=== PATIENT | female | born 1955 | race Caucasian/White ===

== ENCOUNTER → 2016-08-06 | Outpatient (CLI) | payer BC ==
--- NOTE | 2016-08-08 15:44 | BD ---
EXAMINATION TYPE: MG DEXA axial skeleton. DATE OF EXAM: 08/06/2016 3:41 PM COMPARISON: NONE CLINICAL HISTORY: Height: 5 ft 6 in Weight: 240 FRAX RISK QUESTIONS: Alcohol (3 or more units per day): NO Family History (Parent hip fracture): NO Glucocorticoids (More than 3mos): NO (Ex: prednisone, prednisolone, methylprednisolone, dexamethasone, and hydrocortisone). History of Fracture in Adulthood: NO Secondary Osteoporosis: 1. Type 1 Diabetes: NO 2. Hyperthyroidism: NO 3. Menopause before 45: NO 4. Malnutrition: NO 5. Chronic liver disease: NO Rheumatoid Arthritis: YES Current Tobacco Use: NO RISK FACTORS HISTORY OF: Active: YES Postmenopausal woman: PART HYST AGE 45 MEDICATIONS: Additional Medications: DIOVAN, METHOTREXATE, EMBREL,FOLIC ACID,ASPIRIN Additional History: EXAM MEASUREMENTS: Bone mineral densitometry was performed using the Fut[employer] System. Bone mineral density as measured about the Lumbar spine is: ----- L1-L4(G/cm2): 1.439 T Score Values are as follows: ----- L2: 1.7 ----- L3: 2.5 ----- L4: 3.2 ----- L1-L4: 2.2 Bone mineral density has: Decreased -2.2% since study of: 2009 Bone mineral density about the R hip (g/cm2): 1.064 Bone mineral density about the L hip (g/cm2): 1.085 T Score values are as follows: -----R Neck: 0.2 -----L Neck: 0.3 -----R Total: 0.2 -----L Total: 0.9 Bone mineral density has: Decreased -8.2% since study of: 2009 IMPRESSION: Normal (Values between +1 and -1 indicate normal bone mass). Consider repeating this study in 5 year s or sooner if there is some new clinical indication. Bone density has diminished 8.4% within the bilateral hips from 11/13/2009 NOTE: T-SCORE=SD OF THE YOUNG ADULT MEAN.
== END | disposition home or self-care (01) ==
LOC: RADBDWWP 15:40
PROVIDERS: ATTEND Internal Medicine Rheumatology
DX: M81.0 Age-related osteoporosis without current pathological fracture (principal)
CPT/HCPCS: 77080

== ENCOUNTER → 2017-04-22 | Outpatient (CLI) | payer BC | END | disposition home or self-care (01) | LOC: LABPAT 14:57 | PROVIDERS: ATTEND Orthopaedic Surgery | DX: Z01.812 Encounter for preprocedural laboratory examination (principal) | CPT/HCPCS: 87070 ==

== ENCOUNTER → 2017-04-24 | Outpatient (CLI) | payer BC ==
[2017-04-24 14:09] LABS: INR 1.1 (<1.2); Partial Thromboplastin Time 23.4 sec (22.0-30.0); Prothrombin Time 10.7 sec (9.0-12.0)
[2017-04-24 14:13] LABS: Appearance,Urine Clear (Clear); Bilirubin,Urine Negative (Negative); Blood,Urine Negative (Negative); Color,Urine Light Yellow; Glucose,Urine (UA) Negative (Negative); Ketones,Urine Negative (Negative); Leukocyte Esterase,Urine Negative (Negative); Nitrite,Urine Negative (Negative); PH, Urine 5.5 (5.0-8.0); Protein,Urine Negative (Negative); Specific Gravity,Urine 1.005 (1.001-1.035); Urobilinogen,Urine <2.0 mg/dL (<2.0)
== END | disposition home or self-care (01) ==
LOC: LABPAT 12:48
PROVIDERS: ATTEND Orthopaedic Surgery
DX: Z01.812 Encounter for preprocedural laboratory examination (principal)
CPT/HCPCS: 36415; 81003; 85610; 85730

== ENCOUNTER → 2017-05-19 | Outpatient (CLI) | payer BC ==
[2017-05-19 12:45] LABS: HCT 39.1 % (34.0-46.0); HGB 13.1 gm/dL (11.4-16.0); MCH 30.4 pg (25.0-35.0); MCHC 33.5 g/dL (31.0-37.0); MCV 90.7 fL (80.0-100.0); Mean Platelet Volume 7.4; Platelet Count 279 k/uL (150-450); RDW 13.5 % (11.5-15.5); WBC 7.8 k/uL (3.8-10.6)
[2017-05-19 13:08] LABS: Anion Gap 11 mmol/L; Blood Urea Nitrogen 17 mg/dL (7-17); Carbon Dioxide 31 mmol/L (22-30); Chloride 101 mmol/L (98-107); Potassium 4.2 mmol/L (3.5-5.1); Sodium 143 mmol/L (137-145)
== END | disposition home or self-care (01) ==
LOC: LABPAT 12:05
PROVIDERS: ATTEND Internal Medicine Interventional Cardiology
DX: Z01.812 Encounter for preprocedural laboratory examination (principal); R07.9 Chest pain, unspecified
CPT/HCPCS: 36415; 80051; 82565; 84520; 85027

== ENCOUNTER → 2017-05-26 | Day surgery (SDC) | payer BC ==
[2017-05-22 09:55] VITALS: BMI 38.0
[~2017-05-26] MED LIST: ALPRAZolam 0.25 MG TAB PO PRN; ALPRAZolam 0.5 MG TAB PO PRN; ASPIRIN 325 MG TAB PO STA; ASPIRIN 81 MG PO SCH; ATORVASTATIN 80 MG TAB PO STA; Etanercept [Enbrel] 50 MG SQ SCH; FOLIC ACID 1 MG TAB PO SCH; HEPARIN SODIUM 1,000 UN/ML (10ML VL) ONE; HYDROCHLOROTHIAZIDE PO SCH; IOHEXOL 350 MG/ML 125ML BOTTLE INJ ONE; LIDOCAINE 2% INJ 20 MG/ML (20 ML MDV) ONE; LIDOCAINE 2% INJ 20 MG/ML SQ ONE; METHOTREXATE 25 MG SQ SCH; MIDAZOLAM 2 MG/2 ML VIAL IVP ONE; MIDAZOLAM 2 MG/2 ML VIAL ONE; NITROGLYCERIN SL TABS 0.4 MG TAB SUBLINGUAL PRN; RX INFO: IV CONTRAST WAS GIVEN 1 EACH MISC MISCELLANE PRN; SODIUM CHLORIDE 0.9% 1,000 ML IV SCH; SODIUM CHLORIDE 0.9% 1,000 ML in EMPTY BAG 1 BAG IV ONE; VALSARTAN PO SCH; VERAPAMIL 2.5 MG/ML 2 ML AMP ONE; VERAPAMIL SYRINGE (5 MG/10 ML) INTRAARTER ONE; fentaNYL (PF) 50 MCG/ML 2 ML AMP IVP ONE; fentaNYL (PF) 50 MCG/ML 2 ML AMP ONE
[2017-05-26 07:17] VITALS: TEMP 98.9
[2017-05-26] MEDS: VERAPAMIL SYRINGE (5 MG/10 ML) INTRAARTER ONE ×2 (08:37→08:51)
[2017-05-26 09:05] VITALS: RESP 16
--- NOTE | 2017-05-26 09:30 | CC ---
CARDIAC CATHETERIZATION REPORT Mrs. De La Garza is a 61-year-old female with a known history of hypertension, family history of premature coronary disease who has been complaining of dyspnea on exertion. She is scheduled to undergo total knee arthroplasty and had stress test revealed inferolateral reversible defect. In view of that, recommendation made regarding cardiac catheterization. The procedures, risks and complication were discussed with the patient who is in full understanding and agreement. PROCEDURE: Patient was brought to the Branch Billing Payroll Clerk in a fasting semi-sedated state after receiving fentanyl and Benadryl and achieving moderate conscious sedated state. She was draped and prepped in conventional fashion using Xylocaine anesthesia and Seldinger technique. A 6-Polish sheath was introduced in the right radial artery. Selective right and left angiography performed using 5-Polish 3.5 bend right and left Wale catheter. Multiple views of the coronary artery including hemiaxial views were obtained. Following that, a 5-Polish tight pigtail catheter introduced in the left ventricle and a 30 degree BURTON view of the left ventricle was obtained. Following that, the catheter and sheaths were removed. Hemostasis was obtained from deployment of a TR band. There was no immediate complication. Patient is returned to her room in stable condition. Of note, the patient received 5000 units of intravenous heparin as well as intra- arterial verapamil. FINDINGS: 1. LEFT MAIN: This is a short-sized vessel bifurcating into left circumflex, left anterior descending artery, left main coronary artery is without any evidence of high-grade stenosis. 2. LEFT ANTERIOR ARTERY: This is a large-sized vessel, reaching toward the apex with a wraparound apex segment giving rise to one large diagonal branch. The left anterior descending artery as well as its branches have no evidence of obstructive coronary artery disease. 3. LEFT CIRCUMFLEX: This is a nondominant vessel, giving rise to 2 obtuse marginal branches. The first one is large in caliber. The left circumflex as well as branches have no evidence of obstructive coronary disease. 4. RIGHT CORONARY ARTERY: This is a large dominant vessel, bifurcating into PDA and posterolateral segment branches. The right coronary artery as well as branches have no evidence of obstructive coronary disease. 5. LEFT VENTRICULOGRAM: Left ventriculogram was performed in 30 degree BURTON view and reveals normal left ventricular size and systolic function. Ejection fraction is 60%. 6. HEMODYNAMICS: There was no gradient across the aortic valve. The left ventricular end diastolic pressure was 8 mmHg. CONCLUSION: 1. Normal coronary arteries. 2. Normal left ventricular size and systolic function. RECOMMENDATION: In view of finding anatomy, I would recommend continue medical therapy with aggressive risk factor modifications being initiated. Those findings and recommendation were discussed with the patient and family, who are in understanding and agreement. DURATION OF THE PROCEDURE: 23 minutes. DESIRE / HUIN: [id number] /
--- NOTE | 2017-05-26 09:36 | LTR ---
DATE OF SERVICE: 05/26/2017 RE: Frederic Selena Dear Dr. Branham; I had the pleasure to perform cardiac catheterization on Mrs. De La Garza at [facility] on May 26, 2017 and full copy of the procedure note will be forwarded to you. In brief, she was found to have no evidence of obstructive coronary artery disease and based on those findings, I see no contraindication to her upcoming surgical intervention. Thank you again for allowing me to participate in this patient's care. Please feel free to call for any questions issues. Sincerely yours; MD MOLLY GriffithsL / HUIN: [id number] /
[2017-05-26 10:44] VITALS: BP 123/68; PULSE 62
== END | disposition home or self-care (01) ==
LOC: CATHCVL 06:46
PROVIDERS: ATTEND Internal Medicine Interventional Cardiology
DX: R94.39 Abnormal result of other cardiovascular function study (principal); I10 Essential (primary) hypertension; Z82.49 Family history of ischemic heart disease and other diseases of the circulatory system; Z79.82 Long term (current) use of aspirin; Z79.899 Other long term (current) drug therapy; Z88.5 Allergy status to narcotic agent
CPT/HCPCS: 93458; C1894; C1769; J2001; J2250; J3010; J1644; Q9967

== ENCOUNTER → 2017-07-10 | Outpatient (CLI) | payer BC ==
[2017-07-10 14:26] LABS: HGB 13.4 gm/dL (11.4-16.0); MCH 30.6 pg (25.0-35.0); MCHC 34.5 g/dL (31.0-37.0); MCV 88.8 fL (80.0-100.0); Mean Platelet Volume 7.4; Platelet Count 253 k/uL (150-450); RBC 4.39 m/uL (3.80-5.40); WBC 7.1 k/uL (3.8-10.6)
[2017-07-10 14:33] LABS: INR 1.1 (<1.2); Partial Thromboplastin Time 22.8 sec (22.0-30.0); Prothrombin Time 10.4 sec (9.0-12.0)
[2017-07-10 14:40] LABS: Albumin 4.3 g/dL (3.5-5.0); Calcium 9.6 mg/dL (8.4-10.2); Potassium 4.1 mmol/L (3.5-5.1); Total Bilirubin 0.6 mg/dL (0.2-1.3); Total Protein 7.6 g/dL (6.3-8.2)
[2017-07-10 14:53] LABS: Appearance,Urine Clear (Clear); Bacteria,Urine Many /hpf; Bilirubin,Urine Negative (Negative); Blood,Urine Negative (Negative); Color,Urine Yellow; Glucose,Urine (UA) Negative (Negative); Ketones,Urine Negative (Negative); Leukocyte Esterase,Urine Small (Negative); Mucus,Urine Rare /hpf; Nitrite,Urine Negative (Negative); PH, Urine 5.5 (5.0-8.0); Protein,Urine Negative (Negative); RBC,Urine 1 /hpf (0-5); Specific Gravity,Urine 1.012 (1.001-1.035); Squamous Epithelial Cell,Urine 2 /hpf (0-4); Urobilinogen,Urine <2.0 mg/dL (<2.0); WBC,Urine 8 /hpf (0-5)
== END | disposition home or self-care (01) ==
LOC: LABWHC1 13:50
PROVIDERS: ATTEND Orthopaedic Surgery
DX: Z01.812 Encounter for preprocedural laboratory examination (principal)
CPT/HCPCS: 36415; 80053; 81001; 85027; 85610; 85730; 87070

== ENCOUNTER 2017-07-28 09:00 | Inpatient (IN) | payer BC ==
[~2017-07-28 09:00] MED LIST changes: +ACETAMINOPHEN TAB 500 MG TAB PO ONE; -ALPRAZolam 0.25 MG TAB PO PRN; -ALPRAZolam 0.5 MG TAB PO PRN; -ASPIRIN 325 MG TAB PO STA; -ASPIRIN 81 MG PO SCH; -ATORVASTATIN 80 MG TAB PO STA; -Etanercept [Enbrel] 50 MG SQ SCH; -FOLIC ACID 1 MG TAB PO SCH; -HEPARIN SODIUM 1,000 UN/ML (10ML VL) ONE; -HYDROCHLOROTHIAZIDE PO SCH; -IOHEXOL 350 MG/ML 125ML BOTTLE INJ ONE; -LIDOCAINE 2% INJ 20 MG/ML (20 ML MDV) ONE; -LIDOCAINE 2% INJ 20 MG/ML SQ ONE; -METHOTREXATE 25 MG SQ SCH; +MIDAZOLAM 2 MG/2 ML VIAL IV PRN; -MIDAZOLAM 2 MG/2 ML VIAL IVP ONE; -MIDAZOLAM 2 MG/2 ML VIAL ONE; -NITROGLYCERIN SL TABS 0.4 MG TAB SUBLINGUAL PRN; +ONDANSETRON ODT 4 MG TAB PO ONE; +ROPIVACAINE 246.25 MG, EPINEPHrine 0.5 MG, KETOROLAC 30 MG, cloNIDine HCL/PF 80 MCG, WA... MISCELLANE ONE; -RX INFO: IV CONTRAST WAS GIVEN 1 EACH MISC MISCELLANE PRN; +SCOPOLAMINE 1.5MG/72HR PATCH TRANSDERM ONE; -SODIUM CHLORIDE 0.9% 1,000 ML IV SCH; -SODIUM CHLORIDE 0.9% 1,000 ML in EMPTY BAG 1 BAG IV ONE; +TRANEXAMIC ACID 1,000 MG in SODIUM CHLORIDE 0.9% 50 ML IVPB ONE; -VALSARTAN PO SCH; -VERAPAMIL 2.5 MG/ML 2 ML AMP ONE; -VERAPAMIL SYRINGE (5 MG/10 ML) INTRAARTER ONE; +ceFAZolin IN SWFI 2 GM/20 ML SYRINGE IVP ONE; +fentaNYL (PF) 50 MCG/ML 2 ML AMP IV PRN; -fentaNYL (PF) 50 MCG/ML 2 ML AMP IVP ONE; -fentaNYL (PF) 50 MCG/ML 2 ML AMP ONE
[2017-07-28] MEDS: MELOXICAM 7.5 MG TAB PO ONE ×2 (10:50→15:11)
[2017-07-28] MEDS: DEXAMETHASONE SOD PHOSPHATE 10 MG/ML 1 ML VIAL IV ONE ×2 (10:59→15:12)
[2017-07-28] MEDS ORDERED: ONDANSETRON 4 MG/2 ML VIAL IVP ONE (10:59)
[2017-07-28] MEDS: LACTATED RINGERS 1,000 ML IV SCH ×2 (10:59→11:44)
[2017-07-28] MEDS ORDERED: DIAZEPAM 5 MG TAB PO PRN ×2 (11:08)
[2017-07-28] MEDS ORDERED: MORPHINE SULFATE 4 MG/ML SYRINGE IVP PRN ×3 (11:08)
[2017-07-28] MEDS ORDERED: NA PHOS,M-B/NA PHOS,DI-BA 133 ML ENEMA RECTAL PRN (11:08)
[2017-07-28] MEDS ORDERED: HYDROcodone/APAP 5-325MG 1 EACH TAB PO PRN (11:08)
[2017-07-28] MEDS ORDERED: NALOXONE 0.4 MG/ML 1 ML VIAL IV PRN (11:08)
[2017-07-28] MEDS ORDERED: BISACODYL 10 MG SUPP RECTAL PRN (11:08)
[2017-07-28] MEDS ORDERED: ONDANSETRON 4 MG/2 ML VIAL IVP PRN (11:08)
[2017-07-28] MEDS ORDERED: hydrOXYzine PAMOATE 25 MG CAP PO PRN (11:08)
[2017-07-28] MEDS ORDERED: MAGNESIUM HYDROXIDE 2,400 MG/10 ML CUP PO PRN (11:08)
[2017-07-28] MEDS ORDERED: diphenhydrAMINE 50 MG/ML 1 ML VIAL ONE (11:19)
[2017-07-28] MEDS ORDERED: fentaNYL (PF) 50 MCG/ML 2 ML AMP ONE (11:19)
[2017-07-28] MEDS ORDERED: MIDAZOLAM 2 MG/2 ML VIAL ONE (11:19)
[2017-07-28] MEDS ORDERED: PROPOFOL 10 MG/ML 20 ML VIAL IV ONE (11:19)
[2017-07-28] MEDS ORDERED: MIDAZOLAM 2 MG/2 ML VIAL IVP ONE (11:20)
[2017-07-28] MEDS ORDERED: ceFAZolin 3,000 MG in SODIUM CHLORIDE 0.9% IRRIGATIO 3,000 ML IRRIGATION ONE (12:13)
--- NOTE | 2017-07-28 13:04 | P.OP ---
Date of Procedure: 07/28/17 Preoperative Diagnosis: Severe osteoarthritis right knee Postoperative Diagnosis: Severe osteoarthritis right knee Procedure(s) Performed: Right total knee arthroplasty Implants: Yadav and Nephew Oxinium femoral component size 6, right Yadav & Nephew Yvonne II right nonporous tibial baseplate size 6 Yadav & Nephew size 11 mm Legion XLPE dished articular insert, size 5-6 Yadav & Nephew Yvonne II resurfacing patellar component, 32 mm All components were cemented using Grace bone cement.. The articulation is Oxinium on polyethylene. Anesthesia: spinal Surgeon: Candido Tracey Concrete Conveyor Operator #1: Audra Workman Estimated Blood Loss (ml): 50 Pathology: other (Bone and cartilage) Condition: stable Disposition: PACU Indications for Procedure: After failure of conservative treatment we discussed the surgical and nonsurgical treatment options at length. Patient wishes to proceed with a total knee arthroplasty. Complications specific to this procedure were discussed at length, including but not limited to infection, bleeding, stiffness , and nerve injury. Patient is aware of all these complications and informed consent was obtained Operative Findings: The operative findings are consistent with severe osteoarthritis of the right knee Description of Procedure: Patient was seen in the preoperative area consent was reviewed and operative site was marked with a skin marker. An adductor canal pain catheter was placed by anesthesia in the preoperative area. Patient was then brought to the operating room and given preoperative antibiotics intravenously. A spinal anesthetic was administered by the anesthesia department. A tourniquet was placed on the upper thigh and the lower extremity was prepped and draped in usual sterile fashion. A gram of transexamic acid was given. A universal timeout was then performed which confirmed the patient's name, surgical site, ALLERGIES, and consent. The lower extremity was then exsanguinated and tourniquet was inflated to 250 mmHg. A standard and anterior midline approach to the knee was performed. The skin and subcutaneous tissue was dissected down to the patellar tendon. A medial parapatellar arthrotomy was then performed. The knee was then extended, the patellar was everted, and the knee was again flexed. Anterior horns of both menisci were excised, and a release was performed to the posterior medial aspect of the knee. On gross visual inspection, there was complete loss of articular cartilage in the medial and patellofemoral joint spaces. There was also significant cartilage damage in the lateral compartment. There were multiple periarticular osteophytes which were then removed with a Ronguer. The femoral canal was then opened with the appropriate drill, and the intramedullary femoral cutting guide was then placed and set for 4 of valgus. The distal femoral cutting block was then pinned in place, and the distal femur was then cut. The cutting block was then removed and the cut was checked for flatness. Next, the sizing guide was then placed and set for 3 external rotation based off of the epicondylar axis and Whitesides line. After the femur was sized, the appropriate 4-in-1 cutting block was then pinned in place. The anterior condyles were cut without notching. The posterior and chamfer cuts were performed while protecting the collateral ligaments. The cutting block was then removed, and the femoral canal was plugged with autologous bone. Attention was then directed to the tibia. The remaining ACL was removed with a Ronguer, and the tibia was then gently subluxed forward with a large bent knee retractor. Any remaining menisci was excised. The posterior lateral corner was cauterized in order to cauterize the lateral geniculate artery. The extra medullary tibial cutting guide was then placed, set for the appropriate rotation , slope, and depth of resection. The proximal tibia cutting guide was then pinned in place. Proximal tibia was then cut and sized. Next trials were then placed with the appropriate-sized insert. The knee was able to fully extend and flex to 130 and was stable throughout all range of motion. The knee was then extended, patella everted. Patella was then measured, and then using an osteotomy guide, the patella was cut at the appropriate level. The patella was then measured and drilled and the patella trial was then placed. The knee was then taken through range of motion with the patella trial and the patella tracked normally. The knee was then extended patella trial was then removed and the patella was everted. Knee was then flexed and lug holes were drilled through the femoral trial and the femoral trial was then removed. The tibial was then exposed, and the tibial broach guide was then pinned in place after it was set for the appropriate rotation to allow for the most coverage without overhang. The tibia was then reamed and broached. The cut surfaces of bone were then irrigated with pulsatile lavage. The posterior structures were injected with the ropivacaine solution. The knee was also irrigated with Irrisept solution. The components were then opened, the cement was mixed, and the components were then cemented in place. The cement was allowed to harden with the knee in full extension. While the cement was hardening, the remaining soft tissues were then injected with a ropivacaine solution, which consisted of 246.25 mg of ropivacaine, 0.5 mg of epinephrine, 30 mg of Toradol, 80 g of clonidine, and 48.45 mL of sterile water, for a total of 100 mL of fluid injected. After the cemented hardened. The tourniquet was released, and hemostasis was obtained. A second gram of transexamic acid was given. The knee was again irrigated. The knee was again taken through range of motion and found to be stable throughout all range of motion of 0-130 , and the patella tracked normally. The fascia was then closed with #2 strata fix suture. The subcutaneous tissue was closed with 3-0 Vicryl and 3-0 strata fix. Dermabond glue was used for the skin and placed with the knee in flexion. The patient was placed in a sterile silver dressing. Patient was then transferred to recovery room in stable condition. The business support assistant TERRA Allen was required due the complexity surgery and the need for a skilled surgical manager. She assisted in positioning, draping, retraction, and closure of the wound.
--- NOTE | 2017-07-28 14:35 | XR ---
EXAMINATION TYPE: XR knee limited RT DATE OF EXAM: 07/28/2017 CLINICAL HISTORY: Postoperative evaluation Two views of the right knee are submitted. Identified are changes of total knee arthroplasty with femoral and tibial components appearing well seated. Postsurgical soft tissue changes are noted. Alignment is anatomic.
[2017-07-28] MEDS ORDERED: ROPIVACAINE 1,100 MG, SODIUM CHLORIDE 0.9% 330 ML MISCELLANE PRN ×2 (15:08)
--- NOTE | 2017-07-28 15:10 | P.ONQ ---
Anesthesiology Proc Note - PNB - Peripheral Nerve Block Performed Right Adductor Canal Infusion Time Out Performed: Yes (1118) Procedure Start Time: 11:18 Procedure Stop Time: 11:30 Indication: Analgesia, Dx/Pain Location (Right Knee Pain), Requested by physician Sedation Type: Sedate with meaningful contact maintained Preparation: Sterile Prep Position: Supine Catheter: Indwelling Needle Types: On-Q Needle Size: 100mm (4") Needle Gauge: 21 Technique: Ultrasound Injectate: 0.5% Ropivacaine (see comment for volume) (20ml) Blood Aspirated: No Pain Paresthesia on Injection Noted: No Resistance on Injection: Normal Events: Uneventful and Well Tolerated
[2017-07-28] MEDS: SODIUM CHLORIDE 0.9% 1,000 ML IV SCH (16:10)
[2017-07-28] MEDS: ceFAZolin IN SWFI 2 GM/20 ML SYRINGE IVP SCH (19:39)
[2017-07-28] MEDS: SENNOSIDES-DOCUSATE SODIUM 1 EACH TAB PO SCH (20:35)
[2017-07-28] MEDS: ASPIRIN 325 MG TAB PO SCH (20:35)
--- NOTE | 2017-07-28 23:12 | CONS ---
CONSULTATION DATE OF CONSULTATION: 07/21/2017 REASON FOR CONSULTATION: Medical management, requested by Dr. Tracey. CONSULTATION: This is a pleasant 62-year-old patient of Dr. Branham who has undergone right total knee arthroplasty. Patient's pain is well controlled. No nausea or vomiting. Chronic stable medical conditions include hypertension, rheumatoid arthritis, obstructive sleep apnea. Patient does not use a CPAP machine. No nausea or vomiting. Did tolerate her supper. No chest pain or shortness of breath. Patient has rheumatoid arthritis in other joints, too. REVIEW OF SYSTEMS: CONSTITUTIONAL: None. HEENT: None. RESPIRATORY: None. CARDIOVASCULAR: None. GASTROINTESTINAL: None. GENITOURINARY: None. MUSCULOSKELETAL: Arthritic pain in different joints. DERMATOLOGICAL: None. HEMATOLOGICAL: None. LYMPHATICS: None. PSYCHIATRY: None. NEUROLOGICAL: None. PAST MEDICAL HISTORY: 1. Hypertension. 2. Rheumatoid arthritis. 3. Obstructive sleep apnea. PAST SURGICAL HISTORY: 1. Breast surgery. 2. Cardiac catheterization. 3. Hysterectomy. 4. Right knee arthroscopy. 5. Benign breast biopsy. 6. Cardiac catheterization in May of this year was negative. SOCIAL HISTORY: Does not smoke. Alcohol rarely. . FAMILY HISTORY: Reviewed; noncontributory to presentation. HOME MEDICATIONS: 1. Diovan 320/25 one tablet daily. 2. Methotrexate 25 mg on Thursday. 3. Enbrel 50 mg on Thursday subcutaneously. 4. Keflex 500 mg p.o. t.i.d.; completed. 5. Senokot 1 tablet p.o. b.i.d. 6. Dumont 5 one to two tablets q.4 p.r.n. 7. Aspirin. ALLERGIES: MORPHINE. PHYSICAL EXAMINATION: Temperature 98.1, pulse 93, respiration 16, blood pressure 130/67, pulse ox 94% on room air. GENERAL APPEARANCE: Average build. Lying in bed, comfortable. EYES: Pupils equal. Conjunctivae normal. HEENT: External appearance of nose and ears normal. Oral cavity normal. NECK: JVD not raised. Mass not palpable. RESPIRATORY: Effort normal. Lungs are clear. CARDIOVASCULAR: First and second sounds normal. No edema. ABDOMEN: Soft, nontender. Liver and spleen not palpable. LYMPHATIC: No lymph node palpable in neck or axillae. PSYCHIATRY: Alert and oriented x3. Mood and affect normal. NEUROLOGICAL: Pupils equal. Cranial nerves grossly intact. Power and sensation grossly intact. EXTREMITIES: Dressing over the right knee. Evidence of arthritis, especially in the hands. INVESTIGATIONS: No blood work. ASSESSMENT: 1. Right total knee arthroplasty. 2. Rheumatoid arthritis, chronic. 3. Essential hypertension. 4. Obstructive sleep apnea. Does not use a CPAP machine. PLAN: Home medications will be continued. Care was discussed with the patient. Pain control in place. Patient is getting aspirin for DVT prophylaxis. Care was discussed with the patient. Questions were answered. Thank you, Dr. Tracey. Patient to follow up with Dr. Branham upon discharge. MMODL / IJN: [id number] /
[2017-07-29] MEDS: ceFAZolin IN SWFI 2 GM/20 ML SYRINGE IVP SCH (03:49)
[2017-07-29] MEDS: HYDROcodone/APAP 5-325MG 1 EACH TAB PO PRN ×2 (03:56→20:32)
--- NOTE | 2017-07-29 07:03 | P.PN ---
Progress Note - Text Progress Note Date: 07/29/17 Postoperative day # 1 status post total knee arthroplasty, under spinal anesthesia, and adductor canal catheter placed for postoperative analgesia. Currently on ropivacaine 0.2% 8 mL per hour and continuous infusion, catheter site local. There is no erythema, and there is no tenderness at site of catheter insertion. Patient is ambulating, with limited pain. VAS: 2/10 Breakthrough Meds: None Complications: None . Assessment and Plan: Acute postoperative pain, adductor canal catheter for pain control, pain is well controlled will continue the same management. Promote early ambulation
[2017-07-29 07:27] LABS: Basophils % (A) 0 %; Eosinophils % (A) 0 %; HCT 33.4 % (34.0-46.0); HGB 11.1 gm/dL (11.4-16.0); Lymphocytes # (A) 1.4 k/uL (1.0-4.8); Lymphocytes % (A) 11 %; MCH 29.8 pg (25.0-35.0); MCHC 33.2 g/dL (31.0-37.0); MCV 89.8 fL (80.0-100.0); Mean Platelet Volume 7.4; Monocytes # (A) 0.9 k/uL (0-1.0); Monocytes % (A) 7 %; Neutrophils # (A) 10.1 k/uL (1.3-7.7); Neutrophils % (A) 79 %; Platelet Count 233 k/uL (150-450); RBC 3.72 m/uL (3.80-5.40); RDW 14.3 % (11.5-15.5); WBC 12.7 k/uL (3.8-10.6)
[2017-07-29] MEDS: ASPIRIN 325 MG TAB PO SCH ×2 (08:24→20:31)
[2017-07-29] MEDS: MELOXICAM 7.5 MG TAB PO SCH (08:25)
[2017-07-29] MEDS: VALSARTAN 160 MG TAB PO SCH (08:28)
[2017-07-29] MEDS: HYDROCHLOROTHIAZIDE 25 MG TAB PO SCH (08:39)
--- NOTE | 2017-07-29 09:52 | P.PN ---
Subjective Progress Note Date: 07/29/17 Principal diagnosis: Primary osteoarthritis right knee. Status post total right knee arthroplasty. This is a 62-year-old female who is status post total right knee arthroplasty. She is doing fairly well from an orthopedic standpoint. She is nauseous this morning. Her vitals and labs are stable. No other new complaints or concerns today. Objective - Vital Signs Vital signs: Vital Signs Temp 97.8 F 07/29/17 00:25 Pulse 73 07/29/17 00:25 Resp 16 07/29/17 00:25 BP 109/67 07/29/17 00:25 Pulse Ox 93 L 07/29/17 00:25 Intake & Output 07/28/17 07/29/17 07/29/17 18:59 06:59 18:59 Intake Total 1106 1000 Output Total 50 Balance 1056 1000 Intake: IV 1106 Sodium Chloride 0.9% 1, 130 000 ml @ 65 mls/hr IV . [id number] JOSE Rx#:[id number] Intake, IV Titration 520 Amount Sodium Chloride 0.9% 1, 520 000 ml @ 65 mls/hr IV . [id number] JOSE Rx#:[id number] Oral 480 Output: Estimated Blood Loss 50 Other: Voiding Method Toilet # Voids 3 - Exam This is a pleasant 62-year-old female in no acute distress. She is alert and oriented 3. Exam of the right knee reveals that her dressing is clean, dry and intact. There is mild to moderate swelling to the knee. She has full foot and ankle motion without difficulty or pain. Neurovascular status to the right lower extremity is intact. - Labs CBC & Chem 7: 07/29/17 07:09 Labs: Abnormal Lab Results - Last 24 Hours (Table) 07/29/17 Range/Units 07:09 WBC 12.7 H (3.8-10.6) k/uL RBC 3.72 L (3.80-5.40) m/uL Hgb 11.1 L (11.4-16.0) gm/dL Hct 33.4 L (34.0-46.0) % Neutrophils # 10.1 H (1.3-7.7) k/uL Assessment and Plan (1) Primary osteoarthritis of right knee Current Visit: Yes Status: Acute Code(s): M17.11 - UNILATERAL PRIMARY OSTEOARTHRITIS, RIGHT KNEE SNOMED Code(s): 442678968025379 (2) Status post total right knee replacement Current Visit: Yes Status: Acute Code(s): Z96.651 - PRESENCE OF RIGHT ARTIFICIAL KNEE JOINT SNOMED Code(s): 4109842178811 Plan: The clinical findings are discussed the patient. We will hold her discharge today secondary to her nausea. We're planning discharge to home tomorrow with home care.
[2017-07-29] MEDS ORDERED: HYDROmorphone 2 MG TAB PO PRN ×2 (11:12→11:13)
[2017-07-29] MEDS ORDERED: HYDROmorphone 4 MG TABLET PO PRN (11:14)
[2017-07-29] MEDS: LACTATED RINGERS 1,000 ML IV SCH (16:43)
[2017-07-29] MEDS: SODIUM CHLORIDE 0.9% 1,000 ML IV SCH ×2 (16:44→22:31)
[2017-07-29] MEDS: SENNOSIDES-DOCUSATE SODIUM 1 EACH TAB PO SCH (20:31)
--- NOTE | 2017-07-29 23:19 | PN ---
PROGRESS NOTE DATE OF SERVICE: 07/29/2017 PRESENTING COMPLAINT: Right knee surgery. INTERVAL HISTORY: Patient is status post right knee surgery. The patient is feeling a bit lightheaded this morning and slight nausea. Pain is controlled. No chest pain. Did not feel like having much of her breakfast. REVIEW OF SYSTEMS: Done for constitutional, cardiovascular, GI, pulmonary, musculoskeletal and findings as above. CURRENT MEDICATIONS: Reviewed. EXAMINATION: Temperature 98.1, pulse 98, respirations 16, blood pressure 130/72, pulse ox 98% on room air. GENERAL APPEARANCE: Sitting up on a chair, comfortable. EYES: Pupils equal. Conjunctivae normal. HEENT: External appearance of nose and ears normal. Oral cavity normal. NECK: JVD not raised. Mass not palpable. Respiratory effort. Lungs are clear. CARDIOVASCULAR: First and second sounds normal. No edema. ABDOMEN: Soft, nontender. Liver and spleen not palpable. PSYCHIATRY: Alert and oriented x3. Mood and affect normal. INVESTIGATIONS: Hemoglobin 11.1. ASSESSMENT: 1. Right total knee arthroplasty. 2. Rheumatoid arthritis, chronic. 3. Essential hypertension. 4. Obstructive sleep apnea, does not use CPAP machine. 5. Nausea, probably side effect of pain medication. PLAN: Care was discussed with the patient. I did talk to her a bit about her heart adjusted diet. Other medications to continue. MMODL / IJN: [id number] /
--- NOTE | 2017-07-30 07:14 | CONS ---
CONSULTATION ADDENDUM: DATE OF CONSULTATION: July 28, 2017 Note that my consultation dictated on July 28, 2017 at 21:49 pm date transcribed on July 28, 2017 at 22:56 pm, the date of service/date of consultation is July 28, 2017. MMODL / IJN: [id number] /
[2017-07-30] MEDS: LACTATED RINGERS 1,000 ML IV SCH (07:55)
[2017-07-30] MEDS: ASPIRIN 325 MG TAB PO SCH ×2 (07:57→20:49)
[2017-07-30] MEDS: HYDROCHLOROTHIAZIDE 25 MG TAB PO SCH (07:58)
[2017-07-30] MEDS: VALSARTAN 160 MG TAB PO SCH (07:58)
[2017-07-30] MEDS: MELOXICAM 7.5 MG TAB PO SCH (07:58)
--- NOTE | 2017-07-30 08:37 | P.PN ---
Subjective Progress Note Date: 07/30/17 Principal diagnosis: Primary osteoarthritis right knee. Status post total right knee arthroplasty. This is a 62-year-old female who is status post total right knee arthroplasty. She is doing fairly well from an orthopedic standpoint. Her nausea is improved. She now complains of headache. She has not yet had a bowel movement and states she has not passed gas. No other new complaints or concerns today. Objective - Vital Signs Vital signs: Vital Signs Temp 98.8 F 07/30/17 07:45 Pulse 86 07/30/17 07:45 Resp 17 07/30/17 07:45 BP 138/78 07/30/17 07:45 Pulse Ox 94 L 07/30/17 07:45 Intake & Output 07/29/17 07/30/17 07/30/17 18:59 06:59 18:59 Intake Total 730 Balance 730 Intake: Oral 730 Other: Voiding Method Toilet Toilet Toilet # Voids 1 - Exam This is a pleasant 62-year-old female in no acute distress. She is alert and oriented 3. Exam of the right knee reveals that her dressing is clean, dry and intact. There is mild to moderate swelling to the knee. She has full foot and ankle motion without difficulty or pain. Neurovascular status to the right lower extremity is intact. - Labs CBC & Chem 7: 07/29/17 07:09 Assessment and Plan (1) Primary osteoarthritis of right knee Current Visit: Yes Status: Acute Code(s): M17.11 - UNILATERAL PRIMARY OSTEOARTHRITIS, RIGHT KNEE SNOMED Code(s): 468603531460294 (2) Status post total right knee replacement Current Visit: Yes Status: Acute Code(s): Z96.651 - PRESENCE OF RIGHT ARTIFICIAL KNEE JOINT SNOMED Code(s): 3559855682966 Plan: The clinical findings are discussed the patient. We will most likely hold her discharge today to get her bowels moving into take care of her headache. We'll continue with physical therapy today. We're planning discharge to home tomorrow with home care.
[2017-07-30] MEDS: SODIUM CHLORIDE 0.9% 1,000 ML IV SCH (08:58)
[2017-07-30 15:22] VITALS: RESP 16
--- NOTE | 2017-07-30 17:23 | PN ---
PROGRESS NOTE DATE OF SERVICE: 07/30/17. PRESENTING COMPLAINT: Right knee surgery. INTERVAL HISTORY: Patient is status post right knee surgery. Nausea is much improved. Dizziness is better. Did work with therapy. Sitting up. Did tolerate a diet. REVIEW OF SYSTEMS: Done for constitutional, cardiovascular, GI, pulmonary; relevant findings as above. CURRENT MEDICATIONS: Reviewed. EXAMINATION: Temperature 98.8, pulse 86, respiration 17, blood pressure 138/78, pulse ox 94% on room air. GENERAL APPEARANCE: Lying in chair, awake, comfortable. EYES: Pupils equal. Conjunctivae normal. NECK: JVD not raised. Mass not palpable. HEENT: External appearance of nose and ears normal. Oral cavity normal. CARDIOVASCULAR: first and second sounds normal, no edema. ABDOMEN: Soft, nontender. Liver and spleen not palpable. PSYCHIATRY: Alert and oriented x3. Mood and affect are normal. RESPIRATORY: Effort normal, lungs are clear. INVESTIGATIONS: No blood work from today. ASSESSMENT: 1. Right total knee arthroplasty. 2. Chronic rheumatoid arthritis. 3. Essential hypertension. 4. Obstructive sleep apnea, does not use CPAP machine. 5. Nausea, side effect of pain medication, improved. PLAN: Continue current medication and treatment plan. Care was discussed with the patient. MMODL / IJN: [id number] /
[2017-07-30] MEDS: SENNOSIDES-DOCUSATE SODIUM 1 EACH TAB PO SCH (20:50)
[2017-07-31] MEDS: SODIUM CHLORIDE 0.9% 1,000 ML IV SCH (04:18)
[2017-07-31 07:18] LABS: Basophils % (A) 0 %; Eosinophils # (A) 0.3 k/uL (0-0.7); Eosinophils % (A) 3 %; HCT 34.7 % (34.0-46.0); HGB 11.7 gm/dL (11.4-16.0); Lymphocytes # (A) 2.1 k/uL (1.0-4.8); Lymphocytes % (A) 24 %; MCH 30.2 pg (25.0-35.0); MCHC 33.7 g/dL (31.0-37.0); MCV 89.4 fL (80.0-100.0); Mean Platelet Volume 7.8; Monocytes # (A) 0.3 k/uL (0-1.0); Monocytes % (A) 4 %; Neutrophils % (A) 68 %; Platelet Count 260 k/uL (150-450); RBC 3.88 m/uL (3.80-5.40); RDW 14.3 % (11.5-15.5); WBC 8.9 k/uL (3.8-10.6)
[2017-07-31] MEDS: LACTATED RINGERS 1,000 ML IV SCH (07:23)
[2017-07-31 08:04] VITALS: BP 140/70; PULSE 96; TEMP 98.4
[2017-07-31] MEDS: HYDROCHLOROTHIAZIDE 25 MG TAB PO SCH (08:05)
[2017-07-31] MEDS: ASPIRIN 325 MG TAB PO SCH (08:05)
[2017-07-31] MEDS: MELOXICAM 7.5 MG TAB PO SCH (08:06)
[2017-07-31] MEDS: VALSARTAN 160 MG TAB PO SCH (08:06)
--- NOTE | 2017-07-31 08:30 | P.DS ---
Providers Date of admission: 07/28/17 09:00 Expected date of discharge: 07/31/17 Attending physician: Candido Tracey Consults: 07/28/17 11:08 Consult Physician Routine Consulting Provider: Armond Branham Consult Reason/Comments: medical management Do you want consulting provider notified?: Yes 07/28/17 14:15 Consult Physician Routine Consulting Provider: Domingo Banda Consult Reason/Comments: medical management Do you want consulting provider notified?: Yes Primary care physician: Armond Branham - Discharge Diagnosis(es) (1) Primary osteoarthritis of right knee Current Visit: Yes Status: Acute (2) Status post total right knee replacement Current Visit: Yes Status: Acute Hospital Course: This is a pleasant 62-year-old female last seen in our office with complaints of right knee pain. Patient has known history of degenerative arthritis of the right knee and presented to discuss options. After discussion and consideration , patient elected to proceed with a total knee arthroplasty of the right knee. The patient was seen preoperatively and medically cleared for surgery by her primary care physician. The patient was admitted to [facility] and underwent right total knee arthroplasty on 07/28/[address] Candido Tracey. The procedure was performed without complications or sequelae. The patient has done well postoperatively. The patient was seen and evaluated at bedside today and denies any new complaints. Pain is reasonably controlled. Dressing is clean dry and intact. Incision looks fine with no erythema or active drainage. Calf is soft and nontender. The patient has full foot and ankle motion without difficulty. Patient's right lower extremity is neurovascular intact. Patient is orthopedically stable for discharge to home today. Pertinent Studies: Laboratory Tests 07/31/17 06:48 WBC 8.9 RBC 3.88 Hgb 11.7 Hct 34.7 Patient Condition at Discharge: Stable Plan - Discharge Summary Discharge Rx Participant: Yes New Discharge Prescriptions: New Aspirin 325 mg PO BID #60 tab HYDROcodone/APAP 5-325MG [[place] 5-325] 1 - 2 tab PO Q4-6H PRN #90 tab PRN Reason: Pain Sennosides [Senokot] 1 tab PO BID #60 tablet No Action Methotrexate/Pf [Rasuvo 25 mg/0.5 ml Autoinj] 25 mg SQ WE Etanercept [Enbrel] 50 mg SQ MO Valsartan/Hydrochlorothiazide [Diovan Hct 320-25 mg Tablet] 1 tab PO DAILY Cephalexin [Keflex] 500 mg PO TID Discharge Medication List Etanercept [Enbrel] 50 mg SQ MO 04/22/17 [History] Methotrexate/Pf [Rasuvo 25 mg/0.5 ml Autoinj] 25 mg SQ WE 04/22/17 [History] Valsartan/Hydrochlorothiazide [Diovan Hct 320-25 mg Tablet] 1 tab PO DAILY 04/22 [History] Cephalexin [Keflex] 500 mg PO TID 07/21/17 [History] Aspirin 325 mg PO BID #60 tab 07/28/17 [Rx] HYDROcodone/APAP 5-325MG [[place]adiz 5-325] 1 - 2 tab PO Q4-6H PRN #90 tab 07/28/17 [ Rx] Sennosides [Senokot] 1 tab PO BID #60 tablet 07/28/17 [Rx] Follow up Appointment(s)/Referral(s): Candido Tracey DO [Doctor of Osteopathic Medicine] - 08/12/17 9:45 am [facility] Visiting Nurse, [NON-STAFF] - As Needed Ambulatory/Diagnostic Orders: Continuous Passive Motion (CPM) Machine [DME.AMB1] Time Frame: 3 Weeks, Location : Determined By Patient Activity/Diet/Wound Care/Special Instructions: Weightbearing as tolerated with a walker CPM 5-6h daily CPM ordered through [facility]: #[phone]- call once home to set up delivery Leave dressing intact. May be removed by home care nurse in 10 days. May shower with dressing on. [facility] with questions or concerns [phone] Discharge Disposition: HOME WITH HOME HEALTH SERVICES
--- NOTE | 2017-07-31 23:18 | PN ---
PROGRESS NOTE DATE OF SERVICE: 07/31/2017 PRESENTING COMPLAINT: Right knee surgery. INTERVAL HISTORY: Patient is status post right knee surgery, doing much better. Up to the bathroom. Did tolerate a diet. Did work with therapy. Did tolerate her meals. REVIEW OF SYSTEMS: Done for constitutional, cardiovascular, GI, pulmonary; relevant findings as above. CURRENT MEDICATIONS: Reviewed. EXAMINATION: Temperature 98.4, pulse 96, respirations 16, blood pressure 140/70, pulse ox 97% on room air. GENERAL APPEARANCE: Comfortable. EYES: Pupils equal. Conjunctivae normal. HEENT: External nose and ears normal. Oral cavity normal. NECK: JVD not raised. Mass not palpable. RESPIRATORY: Effort normal. Lungs are clear. CARDIOVASCULAR: First and second sounds normal. No edema. ABDOMEN: Soft, nontender. Liver and spleen not palpable. PSYCHIATRY: Alert and oriented x3. Mood and affect normal. HEENT: External nose and ears normal. Oral cavity normal. INVESTIGATIONS: Hemoglobin 11.7. ASSESSMENT: 1. Right total knee arthroplasty. 2. Chronic rheumatoid arthritis. 3. Essential hypertension. 4. Obstructive sleep apnea. Does not use CPAP machine. 5. Nausea, side effect of pain medication, resolved. PLAN: Patient is stable. Continue medication and treatment plan. MMODL / IJN: [id number] /
== END 2017-07-31 15:40 | disposition home health service (06) | DRG 470 ==
LOC: 2ORMAIN 09:00 → 3SUR 13:37
PROVIDERS: ADMIT Orthopaedic Surgery; ATTEND Orthopaedic Surgery
PROC: 0SRC069 Replacement of Right Knee Joint with Oxidized Zirconium on Polyethylene Synthetic Substitute, Cemented, Open Approach (ICD-10-PCS; principal; 2017-07-28 12:00)
DX: M17.11 Unilateral primary osteoarthritis, right knee (principal); M25.761 Osteophyte, right knee; I10 Essential (primary) hypertension; M06.9 Rheumatoid arthritis, unspecified; G47.33 Obstructive sleep apnea (adult) (pediatric); G89.18 Other acute postprocedural pain; R11.0 Nausea; T40.605A Adverse effect of unspecified narcotics, initial encounter; R51 Headache; Z79.899 Other long term (current) drug therapy; Z79.82 Long term (current) use of aspirin; Z90.710 Acquired absence of both cervix and uterus; Z82.49 Family history of ischemic heart disease and other diseases of the circulatory system; Z79.891 Long term (current) use of opiate analgesic
CPT/HCPCS: 85025; 88300

== ENCOUNTER 2019-05-28 18:45 | Emergency (ER) | payer BC ==
[2019-05-28 18:49] VITALS: TEMP 97.9
[2019-05-28] MEDS ORDERED: ENALAPRILAT 1.25 MG/ML 1 ML VIAL IVP STA (19:09)
--- NOTE | 2019-05-28 19:24 | ED ---
General Adult HPI - General Chief complaint: Recheck/Abnormal Lab/Rx Stated complaint: High BP Time Seen by Provider: 05/28/19 19:00 Source: patient, RN notes reviewed Mode of arrival: ambulatory Limitations: no limitations - History of Present Illness Initial comments: Patient is a pleasant 63-year-old female presenting to the emergency department with concerns for high blood pressure. Patient did see her eye doctor yesterday with blood pressure of 192 systolic. Patient was advised to follow-up for her blood pressure. Patient states she otherwise has no complaints. No chest pain or dyspnea. No abdominal or back pain. No weakness or headache or confusion. Patient does have history of hypertension and is supposed to be on a combination medication that has Ama admit however has been off of this for the past couple of days. - Related Data Home Medications Medication Instructions Recorded Confirmed Etanercept [Enbrel] 50 mg SQ MO 04/22/17 07/28/17 Methotrexate/Pf [Rasuvo 25 mg/0.5 25 mg SQ WE 04/22/17 07/28/17 ml Autoinj] Valsartan/Hydrochlorothiazide 1 tab PO DAILY 04/22/17 07/28/17 [Diovan Hct 320-25 mg Tablet] Cephalexin [Keflex] 500 mg PO TID 07/21/17 07/28/17 Previous Rx's Medication Instructions Recorded Aspirin 325 mg PO BID #60 tab 07/28/17 HYDROcodone/APAP 5-325MG [[place] 1 - 2 tab PO Q4-6H PRN #90 tab 07/28/17 5-325] Sennosides [Senokot] 1 tab PO BID #60 tablet 07/28/17 Valsartan/Hydrochlorothiazide 1 tab PO DAILY #10 tab 05/28/19 [Diovan Hct 320-25 mg Tablet] Allergies Allergy/AdvReac Type Severity Reaction Status Date / Time morphine Allergy RAPID Verified 05/28/19 18:49 HEARTBEAT Review of Systems ROS Statement: Those systems with pertinent positive or pertinent negative responses have been documented in the HPI. ROS Other: All systems not noted in ROS Statement are negative. Constitutional: Denies: fever Eyes: Denies: eye discharge ENT: Denies: ear pain Respiratory: Denies: cough Cardiovascular: Denies: chest pain Endocrine: Denies: fatigue Gastrointestinal: Denies: abdominal pain Genitourinary: Denies: dysuria Musculoskeletal: Denies: back pain Skin: Denies: rash Neurological: Denies: weakness Past Medical History Past Medical History: Hypertension, Rheumatoid Arthritis (RA), Sleep Apnea/CPAP/BIPAP Additional Past Medical History / Comment(s): CURRENT: UTI TAKING KEFLEX. CPAP, DOES NOT USE. USES CRUTCHES, NEEDS WHEELCHAIR FOR LONG DISTANCES. History of Any Multi-Drug Resistant Organisms: None Reported Past Surgical History: Breast Surgery, Hysterectomy, Orthopedic Surgery Additional Past Surgical History / Comment(s): RIGHT KNEE ARTHROSCOPIC, BENIGN BREAST BIOPSY Past Anesthesia/Blood Transfusion Reactions: Postoperative Nausea & Vomiting (PONV) Past Psychological History: No Psychological Hx Reported Smoking Status: Never smoker Past Alcohol Use History: None Reported Past Drug Use History: None Reported - Past Family History Mother Family Medical History: No Reported History General Exam Limitations: no limitations General appearance: alert, in no apparent distress Head exam: Present: normocephalic Eye exam: Present: normal appearance, PERRL, EOMI. Absent: nystagmus ENT exam: Present: normal oropharynx Neck exam: Present: normal inspection Respiratory exam: Present: normal lung sounds bilaterally Cardiovascular Exam: Present: regular rate, normal rhythm GI/Abdominal exam: Present: soft. Absent: tenderness Extremities exam: Present: normal inspection. Absent: pedal edema, calf tenderness Neurological exam: Present: alert, oriented X3, CN II-XII intact. Absent: motor sensory deficit Expanded Neurological exam: Present: protecting the airway Speech: Present: fluid speech Cranial nerves: EOM's Intact: Normal Motor strength exam: RUE: 5, LUE: 5, RLE: 5, LLE: 5 Eye Response: (4) open spontaneously Motor Response: (6) obeys commands Verbal Response: (5) oriented Psychiatric exam: Present: normal affect, normal mood Skin exam: Present: normal color Course Vital Signs 05/28/19 05/28/19 18:47 19:29 Temperature 97.9 F Pulse Rate 79 66 Respiratory 18 18 Rate Blood Pressure 198/76 208/90 O2 Sat by Pulse 96 96 Oximetry - Reevaluation(s) Reevaluation #1: 05/28/19 20:25 Patient given a dose of her medication to take home to take tomorrow Medical Decision Making - Medical Decision Making Patient reevaluated and resting comfortably in bed. Patient does have 2 improved blood pressures. Patient family updated. Patient will be prescribed a prescription for her Diovan/HCTZ - Lab Data Result diagrams: 05/28/19 19:30 05/28/19 19:30 Lab Results 05/28/19 05/28/19 Range/Units 19:30 19:30 WBC 6.6 (3.8-10.6) k/uL RBC 4.41 (3.80-5.40) m/uL Hgb 13.4 (11.4-16.0) gm/dL Hct 39.9 (34.0-46.0) % MCV 90.5 (80.0-100.0) fL MCH 30.4 (25.0-35.0) pg MCHC 33.6 (31.0-37.0) g/dL RDW 13.0 (11.5-15.5) % Plt Count 235 (150-450) k/uL Neutrophils % 62 % Lymphocytes % 24 % Monocytes % 8 % Eosinophils % 2 % Basophils % 0 % Neutrophils # 4.1 (1.3-7.7) k/uL Lymphocytes # 1.6 (1.0-4.8) k/uL Monocytes # 0.5 (0-1.0) k/uL Eosinophils # 0.1 (0-0.7) k/uL Basophils # 0.0 (0-0.2) k/uL Sodium 138 (137-145) mmol/L Potassium 4.0 (3.5-5.1) mmol/L Chloride 102 (98-107) mmol/L Carbon Dioxide 28 (22-30) mmol/L Anion Gap 8 mmol/L BUN 16 (7-17) mg/dL Creatinine 0.87 (0.52-1.04) mg/dL Est GFR (CKD-EPI)AfAm 83 (>60 ml/min/1.73 sqM) Est GFR (CKD-EPI)NonAf 72 (>60 ml/min/1.73 sqM) Glucose 84 (74-99) mg/dL Calcium 9.6 (8.4-10.2) mg/dL Total Bilirubin 0.6 (0.2-1.3) mg/dL AST 25 (14-36) U/L ALT 16 (4-34) U/L Alkaline Phosphatase 86 (38-126) U/L Total Protein 7.6 (6.3-8.2) g/dL Albumin 4.4 (3.5-5.0) g/dL - Radiology Data Radiology results: image reviewed (Chest x-ray shows no acute process) Disposition Clinical Impression: Hypertension Disposition: HOME SELF-CARE Condition: Stable Instructions (If sedation given, give patient instructions): Hypertension (ED) Additional Instructions: Please follow-up with primary care physician in the being the week. Return for increased blood pressure, headache or confusion, speech problems, weakness, chest pain, worsening or change in symptoms or other concerns. Your prescription was sent to [facility]'s pharmacy Prescriptions: Valsartan/Hydrochlorothiazide [Diovan Hct 320-25 mg Tablet] 1 tab PO DAILY #10 tab Is patient prescribed a controlled substance at d/c from ED?: No Referrals: Armond Branham MD [Primary Care Provider] - 1-2 days Time of Disposition: 20:22
[2019-05-28 20:01] LABS: Basophils % (A) 0 %; Eosinophils # (A) 0.1 k/uL (0-0.7); Eosinophils % (A) 2 %; HCT 39.9 % (34.0-46.0); HGB 13.4 gm/dL (11.4-16.0); Lymphocytes # (A) 1.6 k/uL (1.0-4.8); Lymphocytes % (A) 24 %; MCH 30.4 pg (25.0-35.0); MCHC 33.6 g/dL (31.0-37.0); MCV 90.5 fL (80.0-100.0); Mean Platelet Volume 8.2; Monocytes # (A) 0.5 k/uL (0-1.0); Monocytes % (A) 8 %; Neutrophils # (A) 4.1 k/uL (1.3-7.7); Neutrophils % (A) 62 %; Platelet Count 235 k/uL (150-450); RBC 4.41 m/uL (3.80-5.40); WBC 6.6 k/uL (3.8-10.6)
--- NOTE | 2019-05-28 20:05 | XR ---
EXAMINATION TYPE: XR chest 2V DATE OF EXAM: 05/28/2019 COMPARISON: NONE HISTORY: Hypertension TECHNIQUE: FINDINGS: Heart and mediastinum are normal. Lungs are clear. Diaphragm is normal. There are chest mathieu ds. Bony thorax appears normal. IMPRESSION: Normal chest
[2019-05-28 20:15] LABS: Albumin 4.4 g/dL (3.5-5.0); Calcium 9.6 mg/dL (8.4-10.2); Total Bilirubin 0.6 mg/dL (0.2-1.3); Total Protein 7.6 g/dL (6.3-8.2)
[2019-05-28] MEDS ORDERED: VALSARTAN 160 MG TAB PO STA (20:24)
[2019-05-28] MEDS ORDERED: HYDROCHLOROTHIAZIDE 25 MG TAB PO STA (20:24)
[2019-05-28 20:40] VITALS: PULSE 63
[2019-05-28 20:48] VITALS: BP 160/76; RESP 10
== END 2019-05-28 20:52 | disposition home or self-care (01) ==
LOC: EC 18:45
DX: I10 Essential (primary) hypertension (principal); M06.9 Rheumatoid arthritis, unspecified; G47.30 Sleep apnea, unspecified; Z79.899 Other long term (current) drug therapy; Z88.5 Allergy status to narcotic agent; Z99.89 Dependence on other enabling machines and devices
CPT/HCPCS: 36415; 71046; 80053; 85025; 93005; 96374; 99284

== ENCOUNTER → 2024-04-06 | Outpatient (CLI) | payer MEDICARE ==
[2024-04-06 19:14] LABS: Basophils # (A) 0.03 X 10*3/uL (0.00-0.10); Basophils % (A) 0.5 %; Eosinophils # (A) 0.16 X 10*3/uL (0.04-0.35); Eosinophils % (A) 2.5 %; HCT 42.2 % (37.2-46.3); HGB 13.9 g/dL (12.0-15.0); Lymphocytes # (A) 1.98 X 10*3/uL (0.90-5.00); Lymphocytes % (A) 31.1 %; MCH 29.4 pg (27.0-32.0); MCHC 32.9 g/dL (32.0-37.0); MCV 89.2 FL (80.0-97.0); Mean Platelet Volume 11.2 FL (9.5-12.2); Monocytes # (A) 0.51 X 10*3/uL (0.20-1.00); NRBC Per 100 WBC 0 X 10*3/uL (0.00-0.01); Neutrophils # (A) 3.67 X 10*3/uL (1.80-7.70); Neutrophils % (A) 57.7 %; Platelet Count 235 X 10*3/uL (140-440); RBC 4.73 X 10*6/uL (4.10-5.20); RDW 12.5 % (11.5-14.5); WBC 6.36 X 10*3/uL (4.50-10.00)
[2024-04-06 20:06] LABS: Chloride 103 mmol/L (96-109); Chol/HDL Ratio 3.31 Ratio; Glucose 92 mg/dL (70-110); LDL Cholesterol,Calculated 99.4 mg/dL (0.0-131.0); Potassium 4.1 mmol/L (3.5-5.5); Sodium 142 mmol/L (135-145)
[2024-04-06 20:07] LABS: ALT 20 U/L (8-44); AST 21 U/L (13-35); Albumin 4.2 g/dL (3.8-4.9); Albumin/Globulin Ratio 1.68 Ratio (1.60-3.17); Alkaline Phosphatase 90 U/L (41-126); Calcium 9.3 mg/dL (8.7-10.3); Carbon Dioxide 27.5 mmol/L (21.6-31.8); Globulin 2.5 g/dL (1.6-3.3); Total Bilirubin 0.5 mg/dL (0.3-1.2); Total Protein 6.7 g/dL (6.2-8.2)
== END | disposition home or self-care (01) ==
LOC: LABWHC1 13:25
PROVIDERS: ATTEND Family Medicine
DX: Z00.01 Encounter for general adult medical examination with abnormal findings (principal)
CPT/HCPCS: 36415; 80053; 80061; 82306; 83036; 84443; 85025